=== PATIENT | female | born 1965 | race Caucasian/White ===

== ENCOUNTER → 2024-06-22 07:47 | Outpatient (REF) | payer OTHER, SELFPAY | LOC: RAD 07:47 | PROVIDERS: ATTENDING PHYSICIAN Internal Medicine Hematology & Oncology; FAMILY PHYSICIAN Internal Medicine Geriatric Medicine | DX: C7A.8 Other malignant neuroendocrine tumors (principal); D05.12 Intraductal carcinoma in situ of left breast; Z79.811 Long term (current) use of aromatase inhibitors; E61.1 Iron deficiency; D50.8 Other iron deficiency anemias; Z79.899 Other long term (current) drug therapy | CPT/HCPCS: 71260; 74177; Q9967 ==

== ENCOUNTER → 2024-11-18 07:50 | Outpatient (REF) | payer OTHER, SELFPAY | LOC: MRI 07:50 | PROVIDERS: ATTENDING PHYSICIAN Nurse Practitioner Primary Care | DX: K75.81 Nonalcoholic steatohepatitis (NASH) (principal) | CPT/HCPCS: 74183; 76391; A9575 ==